=== PATIENT | female | born 1970 | race Caucasian/White ===

== ENCOUNTER 2021-05-15 21:02 | Emergency (ER) | payer OTHER, SELFPAY ==
[2021-05-15 21:03] VITALS: BP 119/82; PULSE 72; RESP 18; TEMP 35.9; O2SAT 99; BMI 21.6
[2021-05-15] MEDS: Diphth,Pertuss(Acell),Tet Vac 0.5 ML Vial IM (21:34)
--- NOTE | 2021-05-15 22:06 | EX.ED.UPPERE ---
HPI History of Present Illness Chief Complaint: Laceration Narrative Narrative: 50-year-old female who is right-hand dominant presents with a thumb laceration to the left on the medial aspect. There is no active bleeding. The wound margins are well approximated. Patient does not have any significant pain. She states she cleaned this at home. Patient does not know when her last tetanus immunization was. She has no numbness or tingling. PFSH PFSH Allergy/AdvReac Type Severity Reaction Status Date / Time benzoyl peroxide [From [facility]] Allergy Rash Verified 05/15/21 21:04 clindamycin [From [facility]] Allergy Rash Verified 05/15/21 21:04 Social History Smoking Status: Never smoker ROS ROS ED Constitutional Constitutional ED: Denies chills or fever(s) Eyes Eyes: Denies blurry vision or diplopia ENT ENT ED: Denies rhinorrhea or sore throat Cardiovascular Cardiovascular: Denies chest pain or palpitations Respiratory/Chest Respiratory/Chest: Denies cough or dyspnea Gastrointestinal Gastrointestinal: Denies abdominal pain or nausea Genitourinary Genitourinary ED: Denies dysuria or hematuria Musculoskeletal Musculoskeletal: Denies myalgias or neck pain Integumentary Reports other Details: Superficial laceration left thumb Neurologic Neurologic: Denies headache(s) or weakness EXAM Physical Exam Const Vital Signs: 05/15/21 21:03 Temperature 96.7 F L Temperature Source Temporal Pulse Rate 72 Respiratory Rate 18 Blood Pressure 119/82 H Blood Pressure Mean 94 Pulse Ox 99 Oxygen Delivery Method Room Air Positive well nourished General Appearance ED: NAD HEENT normocephalic and atraumatic Eyes PERRL and EOMs intact bilaterally Cardio regular rate and regular rhythm Neuro oriented x3 Sensorium / Orientation: alert Skin Skin Narrative: Superficial laceration to the medial aspect of the left thumb. Wound margins are approximated. No active bleeding. No bony tenderness. No foreign bodies noted. Left hand neurovascular intact with cap refill to all 5 fingers. MDM MDM MDM Narrative Medical decision making narrative: Patient status immunization is updated. Laceration is superficial and does not require sutures. Wound was cleaned and dressed in the ER. She is counseled on wound care and return precautions. I do not believe she needs antibiotics. Patient stable for discharge at this time. Impression: 1. Superficial thumb laceration Discharge Plan Triage Chief Complaint: Laceration ED Provider: Tru Ruiz Dx/Rx/DC Orders Instructions: ED Laceration Small or ... Primary Care Provider: Joaquina Zhang Referrals: Joaquina Zhang DO [Primary Care Provider] - Disposition Disposition: Home, Self Care Discharge Date/Time: 05/15/21 21:42
== END 2021-05-15 21:42 | disposition home or self-care (01) ==
PROVIDERS: Emergency Provider Student in an Organized Health Care Education/Training Program; PCP Internal Medicine
DX: S61.012A Laceration without foreign body of left thumb without damage to nail, initial encounter (principal); X58.XXXA Exposure to other specified factors, initial encounter; Y93.9 Activity, unspecified; Y92.9 Unspecified place or not applicable; Y99.9 Unspecified external cause status
CPT/HCPCS: 90715; 99281